=== PATIENT | female | born 1950 | race Two or more races ===

== ENCOUNTER 2018-03-08 11:18 | Inpatient (IN) | payer MEDICARE, OTHER, MEDICAID ==
[~2018-03-08] VITALS: Ht 167.6 cm; Wt 86.6 kg
[2018-03-08] MEDS ORDERED: LORAZEPAM INJ 2 MG/ML VIAL IVP ONE (11:30)
[2018-03-08] MEDS ORDERED: LORAZEPAM INJ 2 MG/ML VIAL ONE (11:32)
--- NOTE | 2018-03-08 11:32 | NUR ---
Patient transported to CT scan via [facility].
[2018-03-08 11:36] LABS: BASOPHILS % (AUTO) 0.6 % (0.0-2.0); EOSINOPHILS % (AUTO) 2.9 % (0.0-6.0); HEMATOCRIT 38 % (33-45); HEMOGLOBIN 12.5 g/dL (11.5-14.8); LYMPHOCYTES % (AUTO) 35.8 % (20.0-44.0); MEAN CORPUSCULAR HGB CONC 33 g/dl (31.0-36.0); MEAN CORPUSCULAR VOLUME 82 fL (82-100); MONOCYTES # (AUTO) 0.4 /CMM (0.1-1.30); MONOCYTES % (AUTO) 7.8 % (2.0-12.0); NEUTROPHILS # (AUTO) 2.9 /CMM (1.8-8.9); NEUTROPHILS % (AUTO) 52.9 % (43.0-81.0); PLATELET COUNT (AUTO) 243 /CMM (150-450); RDW COEFFICIENT OF VARIATION 14.9 (11.5-15.0); RED BLOOD CELL COUNT(AUTO) 4.63 MIL/uL (4.0-5.2); WHITE BLOOD COUNT (AUTO) 5.5 K/uL (4.3-11.0)
[2018-03-08 11:43] LABS: CALCIUM, SERUM 8.7 mg/dL (8.5-10.1); CARBON DIOXIDE 28 mmol/L (21-32); CHLORIDE 107 mmol/L (98-107); CREATININE 0.8 mg/dL (0.6-1.3); GLUCOSE 110 mg/dL (74-106); POTASSIUM 3.9 mmol/L (3.5-5.1); SODIUM SERUM 142 mmol/L (136-145); UREA NITROGEN, BLOOD 16 mg/dL (7-18)
--- NOTE | 2018-03-08 11:43 | NUR ---
Patient came back from CT
[2018-03-08 11:47] LABS: INR 0.92 (0.85-1.15)
[2018-03-08 11:49] LABS: ALANINE AMINOTRANSFERASE 32 U/L (12-78); ALBUMIN 3.5 g/dL (3.4-5.0); ALKALINE PHOSPHATASE 93 U/L (46-116); ASPARTATE AMINOTRANSFERASE 21 U/L (15-37); BILIRUBIN,DIRECT 0.1 mg/dL (0.0-0.2); BILIRUBIN,TOTAL 0.5 mg/dL (0.2-1.0); TOTAL PROTEIN, SERUM 7.3 g/dL (6.4-8.2)
[2018-03-08 11:51] LABS: CHOLESTEROL 163 mg/dL (<200); HDL CHOLESTEROL 78 mg/dL (40-60); LDL 68 mg/dL (0-99); TRIGLYCERIDES 98 mg/dL (30-150); TROPONIN I < 0.017 ng/mL (0.00-0.056)
--- NOTE | 2018-03-08 12:30 | NUR ---
Patient is resting comfortably in bed with eyes closed. Easily aroused. VSS
--- NOTE | 2018-03-08 13:00 | NUR ---
CALLED [facility] TIMMY TONY FOR EVAL ON THIS PT.
--- NOTE | 2018-03-08 14:20 | NUR ---
TIMMY CASTILLO LCSW AT BS FOR PSYCH EVAL.
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
--- NOTE | 2018-03-08 15:26 | NUR ---
REPORT GIVEN TO GAURANG SOTO FOR [facility] GPS 219T
--- NOTE | 2018-03-08 15:27 | NUR ---
IV removed. Catheter intact and site benign. Pressure and 4x4 applied to site. No bleeding noted.
[2018-03-08] MEDS ORDERED: ONDA4TAB5 PO (15:30)
[2018-03-08] MEDS ORDERED: BUSP15TA3 PO (15:30)
[2018-03-08] MEDS ORDERED: ACYC800T PO (15:30)
[2018-03-08] MEDS ORDERED: TEMA15CA PO (15:30)
[2018-03-08] MEDS ORDERED: GABA600T2 PO (15:30)
[2018-03-08] MEDS ORDERED: ASPI-1152 PO (15:30)
[2018-03-08] MEDS ORDERED: TOPI100T38 PO (15:30)
[2018-03-08] MEDS ORDERED: TIZA4TAB4 PO (15:30)
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
[2018-03-08] MEDS ORDERED: MAG HYDROX/AL HYDROX/SIMETH 30 ML UDC PO PRN (16:30)
[2018-03-08] MEDS ORDERED: MAGNESIUM HYDROXIDE 30 ML UDC PO PRN (16:30)
[2018-03-08] MEDS ORDERED: LORAZEPAM 0.5 MG TABLET PO PRN (16:30)
[2018-03-08] MEDS ORDERED: ACETAMINOPHEN 325 MG TABLET PO PRN (16:30)
[2018-03-08] MEDS: busPIRone 5 MG TABLET PO SCH (17:32)
[2018-03-08] MEDS ORDERED: ONDANSETRON 4 MG TAB.RAPDIS PO PRN (19:30)
--- NOTE | 2018-03-08 19:35 | NUR ---
GPSRN ASLEEP, EASILY AWAKEND WHEN CALLED. NO NEEDS FOR NOW, COOPERATIVE, CALM OF THIS TIME
[2018-03-08 20:01] VITALS: BP 118/79
[2018-03-08] MEDS: GABAPENTIN 300 MG CAPSULE PO SCH (20:23)
--- NOTE | 2018-03-08 21:40 | NUR ---
GPSRN DUE MEDS ADMINISTERED . ALL NEEDS ATTENDED. REMAINS COOPERATIVE, BEHAVIOR ACCEPTABLE
--- NOTE | 2018-03-09 03:06 | NUR ---
GPSRN SLEEPING APPEARS COMFORTABLE
--- NOTE | 2018-03-09 06:35 | NUR ---
GPSRN BLOOD DRAWN, NO COMPLAINTS MADE.
[2018-03-09 07:16] LABS: ALBUMIN 3.2 g/dL (3.4-5.0); BILIRUBIN,TOTAL 0.5 mg/dL (0.2-1.0); CALCIUM, SERUM 8.6 mg/dL (8.5-10.1); CREATININE 0.8 mg/dL (0.6-1.3); POTASSIUM 4.2 mmol/L (3.5-5.1); TOTAL PROTEIN, SERUM 6.8 g/dL (6.4-8.2)
[2018-03-09 07:30] LABS: THYROID STIMULATING HORMONE 0.263 uIU/mL (0.358-3.74)
[2018-03-09] MEDS: GABAPENTIN 300 MG CAPSULE PO SCH ×3 (08:14→17:00)
[2018-03-09] MEDS: ASPIRIN EC 81 MG TABLET.DR PO SCH (08:14)
[2018-03-09] MEDS: ACYCLOVIR 800 MG TABLET PO SCH ×3 (08:14→16:35)
[2018-03-09] MEDS: busPIRone 5 MG TABLET PO SCH ×2 (08:15→16:35)
[2018-03-09 08:52] VITALS: BP 110/66
[2018-03-09 16:00] VITALS: BP 124/83
[2018-03-09 20:23] VITALS: BP 106/67
[2018-03-09] MEDS: HALOPERIDOL 5 MG TABLET PO SCH (21:13)
[2018-03-09] MEDS: ATORVASTATIN 40 MG TABLET PO SCH (22:27)
[2018-03-10 08:00] VITALS: BP 134/82
[2018-03-10] MEDS: busPIRone 5 MG TABLET PO SCH ×2 (09:07→16:58)
[2018-03-10] MEDS: GABAPENTIN 300 MG CAPSULE PO SCH ×3 (09:07→16:57)
[2018-03-10] MEDS: ASPIRIN EC 81 MG TABLET.DR PO SCH (09:07)
[2018-03-10] MEDS: ACYCLOVIR 800 MG TABLET PO SCH ×3 (09:07→16:58)
[2018-03-10] MEDS: HALOPERIDOL 5 MG TABLET PO SCH ×2 (09:07→21:11)
[2018-03-10 16:00] VITALS: BP 103/58
[2018-03-10 20:24] VITALS: BP 112/63
[2018-03-10] MEDS: ATORVASTATIN 40 MG TABLET PO SCH (21:11)
[2018-03-11 08:00] VITALS: BP 114/71
[2018-03-11] MEDS: ASPIRIN EC 81 MG TABLET.DR PO SCH (08:25)
[2018-03-11] MEDS: GABAPENTIN 300 MG CAPSULE PO SCH ×3 (08:25→16:16)
[2018-03-11] MEDS: HALOPERIDOL 5 MG TABLET PO SCH ×2 (08:25→22:00)
[2018-03-11] MEDS: ACYCLOVIR 800 MG TABLET PO SCH ×3 (08:26→16:16)
[2018-03-11] MEDS: busPIRone 5 MG TABLET PO SCH ×2 (08:26→16:16)
--- NOTE | 2018-03-11 15:36 | NUR ---
Initial Discharge Plan: Pt resides at [id number] [place] [address] [address] [facility] [id number]; . Upon discharge pt would like to discharge home. Pt denies having any support system however reported living with her boyfriend Oscar Bragg. Pt was unable to provide a telephone # and stated boyfriend working in [place] the majority of the time. SW will follow up to ensure pt is safely and adequately discharged.
[2018-03-11 16:00] VITALS: BP 105/75
[2018-03-11 20:00] VITALS: BP 116/59
[2018-03-11] MEDS: ATORVASTATIN 40 MG TABLET PO SCH (22:00)
[2018-03-11] MEDS: TEMAZEPAM 7.5 MG CAPSULE PO PRN (22:00)
[2018-03-12 07:52] VITALS: BP_SYST 119; BP_SYST 160; BP_DIAS 73; BP_DIAS 79
[2018-03-12] MEDS: busPIRone 5 MG TABLET PO SCH ×2 (08:19→17:13)
[2018-03-12] MEDS: ASPIRIN EC 81 MG TABLET.DR PO SCH (08:19)
[2018-03-12] MEDS: ACYCLOVIR 800 MG TABLET PO SCH ×3 (08:19→17:13)
[2018-03-12] MEDS: GABAPENTIN 300 MG CAPSULE PO SCH ×3 (08:19→17:14)
[2018-03-12] MEDS: HALOPERIDOL 5 MG TABLET PO SCH ×2 (08:19→21:51)
[2018-03-12 16:07] VITALS: BP 110/69
[2018-03-12 20:00] VITALS: BP 117/66
[2018-03-12] MEDS: ATORVASTATIN 40 MG TABLET PO SCH (21:51)
[2018-03-12] MEDS: TEMAZEPAM 7.5 MG CAPSULE PO PRN (21:51)
[2018-03-13 08:00] VITALS: BP 107/58
[2018-03-13] MEDS: busPIRone 5 MG TABLET PO SCH ×2 (08:14→17:05)
[2018-03-13] MEDS: GABAPENTIN 300 MG CAPSULE PO SCH ×3 (08:14→17:05)
[2018-03-13] MEDS: ASPIRIN EC 81 MG TABLET.DR PO SCH (08:14)
[2018-03-13] MEDS: HALOPERIDOL 5 MG TABLET PO SCH ×2 (08:15→21:08)
[2018-03-13 16:17] VITALS: BP 100/53
[2018-03-13 20:00] VITALS: BP 103/63
[2018-03-13] MEDS: TEMAZEPAM 7.5 MG CAPSULE PO PRN (22:16)
[2018-03-13] MEDS: ATORVASTATIN 40 MG TABLET PO SCH (22:16)
[2018-03-14 08:00] VITALS: BP 108/69
[2018-03-14] MEDS: HALOPERIDOL 5 MG TABLET PO SCH ×2 (08:27→21:29)
[2018-03-14] MEDS: busPIRone 5 MG TABLET PO SCH ×2 (08:27→16:09)
[2018-03-14] MEDS: GABAPENTIN 300 MG CAPSULE PO SCH ×3 (08:27→16:09)
[2018-03-14] MEDS: ASPIRIN EC 81 MG TABLET.DR PO SCH (08:27)
[2018-03-14 16:27] VITALS: BP 127/75
--- NOTE | 2018-03-14 19:30 | NUR ---
RECEIVED PATIENT LYING IN BED AWAKE. AO X 2, ABLE TO MAKE NEEDS KNOWN. NO ACUTE DISTRESS NOTED. DENIES ANY PAIN AT THIS TIME. CALM AND COOPERATIVE. NO SI/HI. SAFETY REMINDERS GIVEN. ON LOW BED WITH BILATERAL UPPER SIDE RAILS UP. CALL ARANDA WITHIN EASY REACH. WILL CONTINUE TO MONITOR.
[2018-03-14 20:08] VITALS: BP 127/78
[2018-03-14] MEDS: ATORVASTATIN 40 MG TABLET PO SCH (21:29)
[2018-03-15 03:35] VITALS: BP 127/78
--- NOTE | 2018-03-15 06:14 | NUR ---
PATIENT ASLEEP, EASILY AROUSABLE. RESPIRATIONS EVEN. NO SIGNS OF PAIN NOTED. DUE MED GIVEN WITH NO ASE NOTED. NEEDS ATTENDED. SAFETY PRECAUTIONS AND COMFORT MEASURES IN PLACE. WILL GIVE REPORT TO DAY SHIFT FOR CONTINUITY OF CARE.
[2018-03-15 08:00] VITALS: BP 119/65
[2018-03-15] MEDS: busPIRone 5 MG TABLET PO SCH ×2 (08:34→16:39)
[2018-03-15] MEDS: GABAPENTIN 300 MG CAPSULE PO SCH ×3 (08:34→16:39)
[2018-03-15] MEDS: HALOPERIDOL 5 MG TABLET PO SCH ×2 (08:34→21:34)
[2018-03-15] MEDS: ASPIRIN EC 81 MG TABLET.DR PO SCH (08:35)
[2018-03-15 16:00] VITALS: BP 129/55
[2018-03-15 19:40] VITALS: BP 90/61
[2018-03-15 20:00] VITALS: BP 90/61
[2018-03-15] MEDS: ATORVASTATIN 40 MG TABLET PO SCH (21:34)
--- NOTE | 2018-03-16 06:43 | NUR ---
RN GPS CLOSING NOTES PATIENT IN BED , RESPIRATIONS EVEN AND UNLABORED, DENIES ANY PAIN OR DISCOMFORT AT THIS TIME, PATIENT SLEPT WELL THROUGH SHIFT, ALL NEEDS ATTENDED, PATIENT REMAINS COMFORTABLE AT THIS TIME, WILL CONTINUE TO MONITOR AND ENDORSE TO NEXT SHIFT.
[2018-03-16 08:00] VITALS: BP 115/78
[2018-03-16] MEDS: HALOPERIDOL 5 MG TABLET PO SCH (09:23)
[2018-03-16] MEDS: busPIRone 5 MG TABLET PO SCH (09:23)
[2018-03-16] MEDS: GABAPENTIN 300 MG CAPSULE PO SCH ×2 (09:23→12:36)
[2018-03-16] MEDS: ASPIRIN EC 81 MG TABLET.DR PO SCH (09:25)
--- NOTE | 2018-03-16 15:30 | NUR ---
RADIOLOGIST DIAGNOSTIC NOTE:PATIENT ALERT ,ORIENTED X3,AMBULATORY AND INDEPENDENT ,DENIES SI/HI/AVH .VS STABLE , NOS/S OF DISTRESS NOTED ,MED COMPLIANT ALL BELONGINGS RETURNED TO PATIENT ,ALL PRESCRIPTION GIVEN AND EXPLAINED TO PATIENT AND FRIEND ,SEEN BY AND .PATIENT DISCHARGE WITH FRIEND .
== END 2018-03-16 15:30 | disposition home or self-care (01) | DRG 885 ==
LOC: ER 11:20 → GPS 15:15
PROVIDERS: ADMIT Internal Medicine; ATTEND Psychiatry & Neurology Psychiatry
DX: F20.0 Paranoid schizophrenia (principal); G62.9 Polyneuropathy, unspecified; F29 Unspecified psychosis not due to a substance or known physiological condition; E78.5 Hyperlipidemia, unspecified; I10 Essential (primary) hypertension; K21.9 Gastro-esophageal reflux disease without esophagitis; F32.9 Major depressive disorder, single episode, unspecified; Z86.73 Personal history of transient ischemic attack (TIA), and cerebral infarction without residual deficits; Z73.6 Limitation of activities due to disability
CPT/HCPCS: 36415; 70450-TC; 71045-TC; 80048-TC; 80053-TC; 80061-TC; 80076-TC; 82746; 82962-TC; 83540-TC; 84443-TC; 84484-TC; 85025-TC; 85730-TC; 87081-TC; A4606; J2060; Q0162; Z7610

== ENCOUNTER 2018-11-30 05:45 | Inpatient (IN) | payer MEDICARE, OTHER ==
[~2018-11-30] VITALS: Ht 165.1 cm; Wt 97.2 kg
[~2018-11-30 05:45] MED LIST: ACYC800T PO; ASPI-1152 PO; BUSP15TA3 PO; GABA600T12 PO; ONDA4TAB5 PO; TEMA15CA PO; TIZA4TAB4 PO; TOPI100T38 PO
--- NOTE | 2018-11-30 05:55 | NUR ---
Pt BIBself complaining of dizziness that started last night at 2100, Pt states she fell asleep and woke up at 0330 and was unable to lift tongue. Pt able to lift tongue at the moment, but states that she is having difficulty speaking. Pt AAXO4. Pt primarily welsh speaker. Respirations even and unlabored. Pt put on the monitor and pending eval from ER .
--- NOTE | 2018-11-30 05:56 | NUR ---
ER MD Dr. Hinojosa AT BEDSIDE for EVAL.
--- NOTE | 2018-11-30 05:58 | NUR ---
Pt taken to CT.
--- NOTE | 2018-11-30 06:05 | NUR ---
[facility]
[2018-11-30 06:06] LABS: BASOPHILS % (AUTO) 0.9 % (0.0-2.0); EOSINOPHILS % (AUTO) 3.9 % (0.0-6.0); HEMATOCRIT 40 % (33-45); HEMOGLOBIN 12.8 g/dL (11.5-14.8); LYMPHOCYTES # (AUTO) 2.3 /CMM (0.8-4.8); MEAN CORPUSCULAR HGB CONC 32 g/dl (31.0-36.0); MEAN CORPUSCULAR VOLUME 85 fL (82-100); MONOCYTES # (AUTO) 0.5 /CMM (0.1-1.30); MONOCYTES % (AUTO) 9.8 % (2.0-12.0); NEUTROPHILS # (AUTO) 2.2 /CMM (1.8-8.9); NEUTROPHILS % (AUTO) 41.4 % (43.0-81.0); PLATELET COUNT (AUTO) 223 /CMM (150-450); RED BLOOD CELL COUNT(AUTO) 4.66 MIL/uL (4.0-5.2); WHITE BLOOD COUNT (AUTO) 5.3 K/uL (4.3-11.0)
[2018-11-30] MEDS ORDERED: IOHEXOL-350 100 ML VIAL IV ONE (06:07)
[2018-11-30] MEDS ORDERED: CT SWABBABLE VALVE TRANS SET 1 EA INFUS.SET MC ONE (06:07)
[2018-11-30] MEDS ORDERED: IV NS 0.9% 250 ML IV ONE (06:07)
--- NOTE | 2018-11-30 06:14 | NUR ---
Pt returned from CT.
--- NOTE | 2018-11-30 06:15 | NUR ---
ER MD DR. SOLIS AT Bedside for EVAL.
[2018-11-30 06:16] LABS: CALCIUM, SERUM 8.5 mg/dL (8.5-10.1); CARBON DIOXIDE 28 mmol/L (21-32); CHLORIDE 107 mmol/L (98-107); CREATININE 0.8 mg/dL (0.6-1.3); GLUCOSE 110 mg/dL (74-106); POTASSIUM 3.6 mmol/L (3.5-5.1); SODIUM SERUM 141 mmol/L (136-145); UREA NITROGEN, BLOOD 17 mg/dL (7-18)
[2018-11-30 06:19] LABS: CHOLESTEROL 161 mg/dL (<200); HDL CHOLESTEROL 72 mg/dL (40-60); LDL 84 mg/dL (0-99); TRIGLYCERIDES 91 mg/dL (30-150)
[2018-11-30 06:21] LABS: ALANINE AMINOTRANSFERASE 31 U/L (12-78); ALBUMIN 3.8 g/dL (3.4-5.0); ALKALINE PHOSPHATASE 103 U/L (46-116); ASPARTATE AMINOTRANSFERASE 17 U/L (15-37); BILIRUBIN,DIRECT 0.1 mg/dL (0.0-0.2); BILIRUBIN,TOTAL 0.5 mg/dL (0.2-1.0); TOTAL PROTEIN, SERUM 7.3 g/dL (6.4-8.2)
[2018-11-30] MEDS ORDERED: ASPIRIN 325 MG TABLET ONE (06:52)
[2018-11-30] MEDS ORDERED: ASPIRIN 325 MG TABLET PO ONE (07:00)
--- NOTE | 2018-11-30 07:00 | NUR ---
Pt sitting in bed comfortably. NAD NOTED. Pt on the compliance monitor and pulse ox.
--- NOTE | 2018-11-30 07:27 | NUR ---
REPORT GIVEN TO FARRAH MERLOS FOR [facility].
--- NOTE | 2018-11-30 07:29 | NUR ---
RECEIVED REPORT FROM GAURANG MIGUEL FOR [facility]. PT IS AWAKE AND ALERT, NOT IN RESPIRATORY DISTRESS, V/S STABLE, KEPT RESTED AND COMFORTABLE. WILL CONTINUE TO MONITOR.
--- NOTE | 2018-11-30 09:13 | NUR ---
rec'd verbal auth from [place] to admit to dr terry. dr terry at bedside.
--- NOTE | 2018-11-30 09:20 | NUR ---
called nursing on car supervisor juan for tele bed
[2018-11-30] MEDS ORDERED: CELE200C PO (09:26)
[2018-11-30] MEDS ORDERED: GABA800T11 PO (09:26)
--- NOTE | 2018-11-30 09:58 | NUR ---
called nursing supervisor floor assembly for second time for tele bed; states he will call right back
[2018-11-30] MEDS ORDERED: TEMAZEPAM 15 MG CAPSULE PO PRN (10:00)
--- NOTE | 2018-11-30 10:06 | NUR ---
called report to Adriana MERLOS for admission
--- NOTE | 2018-11-30 10:10 | NUR ---
TECH AT BEDSIDE FOR ECHOCARDIOGRAM.
[2018-11-30 10:30] VITALS: BP 125/72
--- NOTE | 2018-11-30 10:30 | NUR ---
PORT PATROL OFFICER AM NOTES ADMITTED PT FROM ER WITH DX OF CVA.PT VERBALIZED THAT THIS IS THE 5TH TIME SHE HAD THIS EPISODE.ALERT AND ORIENTED X3.VERBALLY RESPONSIVE.AMBULATES AD JAMMIE WITH STEADY GAIT.PT EVAL DONE-PT AMBULATED ALONG THE HALLWAY WITH STEADY GAIT.NIHSS ASSESSMENT DONE AND STROKE TEACHING DONE.SKIN INTACT.DENIES ANY PAIN OR DISTRESS.CALL LIGHT PLACED WITHIN REACH.
--- NOTE | 2018-11-30 11:00 | NUR ---
ON TELE SR HR 86.DENYING ANY PAIN OR DISTRESS.
[2018-11-30] MEDS ORDERED: ONDANSETRON 4 MG TAB.RAPDIS PO PRN (11:30)
[2018-11-30] MEDS ORDERED: ACYCLOVIR 800 MG TABLET PO SCH (13:00)
[2018-11-30] MEDS ORDERED: POTASSIUM CHLORIDE 20 MEQ TAB.PRT.SR PO SCH (13:00)
[2018-11-30] MEDS ORDERED: POTASSIUM CHLORIDE 20 MEQ POWDER PACKET PO SCH (13:00)
[2018-11-30] MEDS: GABAPENTIN 400 MG CAPSULE PO SCH ×2 (13:42→21:57)
--- NOTE | 2018-11-30 14:20 | NUR ---
Pt seen and evaluated by PT and pt ambulated along the hallway with stand by assist with slow,steady gait.Pt tolerated well.
[2018-11-30 16:00] VITALS: BP 128/74
[2018-11-30] MEDS: busPIRone 5 MG TABLET PO SCH (16:44)
--- NOTE | 2018-11-30 19:30 | NUR ---
SUPERVISOR CARTOGRAPHY INITIAL NOTES Patient is awake, A/O x3. Stable oxygen saturation on RA. Sinus fadumo on the tele monitor HR 58, denies pain. Instructed to use call light if she needs assistance, verbalized understanding. Maintained safety, will cont to monitor.
[2018-11-30 20:00] VITALS: BP 140/82
[2018-11-30] MEDS ORDERED: ATORVASTATIN 10 MG TABLET PO SCH (22:00)
[2018-11-30] MEDS ORDERED: TOPIRAMATE 100 MG TABLET PO SCH (22:00)
[2018-12-01] VITALS: BP 105/65
[2018-12-01 04:00] VITALS: BP 116/69
[2018-12-01 04:15] VITALS: BP 116/69
[2018-12-01] MEDS: GABAPENTIN 400 MG CAPSULE PO SCH ×2 (06:15→12:31)
--- NOTE | 2018-12-01 06:29 | NUR ---
SENIOR IOS DEVELOPER CLOSING NOTES Patient in bed, Sinus fadumo on the tele monitor HR lows on 42 to 58, denies dizziness, no c/o discomfort. NIHSS stroke scale performed, total 0. Reports weakness on the Right side but no drift. Slept well more than 6 hours, no acute events over night. Maintained safety, will endorse to oncoming RN.
[2018-12-01 07:23] LABS: CALCIUM, SERUM 8.8 mg/dL (8.5-10.1); CREATININE 0.8 mg/dL (0.6-1.3); POTASSIUM 5.1 mmol/L (3.5-5.1)
[2018-12-01 07:24] LABS: BASOPHILS % (AUTO) 0.9 % (0.0-2.0); EOSINOPHILS % (AUTO) 4.2 % (0.0-6.0); HEMATOCRIT 42 % (33-45); HEMOGLOBIN 13.5 g/dL (11.5-14.8); LYMPHOCYTES # (AUTO) 1.2 /CMM (0.8-4.8); MEAN CORPUSCULAR HGB CONC 32 g/dl (31.0-36.0); MEAN CORPUSCULAR VOLUME 85 fL (82-100); MONOCYTES # (AUTO) 0.4 /CMM (0.1-1.30); MONOCYTES % (AUTO) 8.5 % (2.0-12.0); NEUTROPHILS # (AUTO) 2.3 /CMM (1.8-8.9); NEUTROPHILS % (AUTO) 56.4 % (43.0-81.0); PLATELET COUNT (AUTO) 223 /CMM (150-450); RED BLOOD CELL COUNT(AUTO) 4.95 MIL/uL (4.0-5.2); WHITE BLOOD COUNT (AUTO) 4.2 K/uL (4.3-11.0)
[2018-12-01 07:29] LABS: ALBUMIN 3.5 g/dL (3.4-5.0); BILIRUBIN,TOTAL 0.8 mg/dL (0.2-1.0); TOTAL PROTEIN, SERUM 7.2 g/dL (6.4-8.2)
[2018-12-01 07:36] LABS: THYROID STIMULATING HORMONE 0.518 uIU/mL (0.358-3.74)
--- NOTE | 2018-12-01 07:45 | NUR ---
AGRICULTURAL EQUIPMENT OPERATOR OPENING NOTES PATIENT IS STABLE CONDITION, IN NO APPARENT DISTRESS. BED RAILS UPX2, LOCKED AND AT LOWEST POSITION. IV LINE IS INTACT AND PATENT. CALL LIGHT IS WITHIN REACH. WILL CONTINUE TO MONITOR.
[2018-12-01 08:00] VITALS: BP 129/92
[2018-12-01] MEDS: busPIRone 5 MG TABLET PO SCH (08:06)
[2018-12-01] MEDS ORDERED: ATOR10TA PO (08:25)
[2018-12-01] MEDS ORDERED: ASPIRIN EC 325 MG TABLET.DR PO SCH (09:00)
[2018-12-01] MEDS ORDERED: TIZANIDINE HCL 4 MG TABLET PO SCH (09:00)
--- NOTE | 2018-12-01 14:59 | NUR ---
MS FIRST COAT OPERATOR NOTES PATIENT IN STABLE CONDITION. IN NO APPARENT DISTRESS. STROKE EDUCATION PAMPHLETS PROVIDED. EXIT CARE SIGNED AND PROVIDED. TAXI VOUCHER PROVIDED TO PATIENT. PATIENT ESCORTED OUT OF FACILITY BY LUCIANA ASCENCIO. BELONGINGS CHECKED AND GIVEN TO PATIENT. IV LINE REMOVED. ID BAND REMOVED. PRESCRIPTIONS GIVEN TO PATIENT.
== END 2018-12-01 15:53 | disposition home or self-care (01) | DRG 69 ==
LOC: ER 05:47 → TELE 10:21 → MED 12-01 11:30
PROVIDERS: ADMIT Internal Medicine; ATTEND Internal Medicine
DX: G45.9 Transient cerebral ischemic attack, unspecified (principal); F29 Unspecified psychosis not due to a substance or known physiological condition; G62.9 Polyneuropathy, unspecified; Z86.73 Personal history of transient ischemic attack (TIA), and cerebral infarction without residual deficits; F41.9 Anxiety disorder, unspecified; E78.5 Hyperlipidemia, unspecified; K21.9 Gastro-esophageal reflux disease without esophagitis; Z79.82 Long term (current) use of aspirin; R47.81 Slurred speech; R53.1 Weakness
CPT/HCPCS: 36415; 70450-TC; 70496-TC; 70498-TC; 71045-TC; 80048-TC; 80053-TC; 80061-TC; 80076-TC; 82962-TC; 84443-TC; 84484-TC; 85025-TC; 85730-TC; 87081-TC; 92521; 93307-TC; G0378; J7050; Q9967

== ENCOUNTER 2019-04-02 16:31 | Emergency (ER) | payer MEDICARE, OTHER ==
[~2019-04-02] VITALS: Ht 170.2 cm; Wt 86.2 kg
[~2019-04-02 16:31] MED LIST changes: +ATOR10TA PO; +CELE200C PO; -GABA600T12 PO; +GABA800T11 PO
--- NOTE | 2019-04-02 16:55 | NUR ---
PT BIBFAMILY FOR H/A, COUGH, NASAL CONGESTION X LAST NIGHT, PT AAOX4, PT TO BED 4, NAD NOTED, VSS, PENDING MD LEES
[2019-04-02 17:51] LABS: BASOPHILS # (AUTO) 0.3 /CMM (0.0-0.2); BASOPHILS % (AUTO) 4.5 % (0.0-2.0); EOSINOPHILS % (AUTO) 1.3 % (0.0-6.0); HEMATOCRIT 41 % (33-45); LYMPHOCYTES # (AUTO) 1.3 /CMM (0.8-4.8); LYMPHOCYTES % (AUTO) 20.5 % (20.0-44.0); MEAN CORPUSCULAR HGB CONC 32 g/dl (31.0-36.0); MEAN CORPUSCULAR VOLUME 85 fL (82-100); MONOCYTES # (AUTO) 0.4 /CMM (0.1-1.30); MONOCYTES % (AUTO) 6.8 % (2.0-12.0); NEUTROPHILS # (AUTO) 4.3 /CMM (1.8-8.9); NEUTROPHILS % (AUTO) 66.9 % (43.0-81.0); PLATELET COUNT (AUTO) 234 /CMM (150-450); RED BLOOD CELL COUNT(AUTO) 4.83 MIL/uL (4.0-5.2); WHITE BLOOD COUNT (AUTO) 6.5 K/uL (4.3-11.0)
[2019-04-02 17:57] LABS: CALCIUM, SERUM 8.9 mg/dL (8.5-10.1); CARBON DIOXIDE 23 mmol/L (21-32); CHLORIDE 107 mmol/L (98-107); CREATININE 0.7 mg/dL (0.6-1.3); GLUCOSE 98 mg/dL (74-106); POTASSIUM 3.6 mmol/L (3.5-5.1); SODIUM SERUM 142 mmol/L (136-145); UREA NITROGEN, BLOOD 16 mg/dL (7-18)
[2019-04-02] MEDS ORDERED: IV NS 0.9% 500 ML BAG IV ONE (18:00)
[2019-04-02 18:03] LABS: ALANINE AMINOTRANSFERASE 44 U/L (12-78); ALBUMIN 3.9 g/dL (3.4-5.0); ALKALINE PHOSPHATASE 105 U/L (46-116); ASPARTATE AMINOTRANSFERASE 26 U/L (15-37); BILIRUBIN,DIRECT 0.1 mg/dL (0.0-0.2); BILIRUBIN,TOTAL 0.4 mg/dL (0.2-1.0); LIPASE 205 U/L (73-393); TOTAL PROTEIN, SERUM 7.7 g/dL (6.4-8.2)
[2019-04-02] MEDS ORDERED: ONDANSETRON HCL/PF 4 MG/2 ML VIAL ONE (18:17)
[2019-04-02] MEDS ORDERED: ONDANSETRON HCL/PF - ER 4 MG/2 ML VIAL IV ONE (18:30)
[2019-04-02 18:32] LABS: APPEARANCE,URINE Clear (CLEAR); BILIRUBIN,URINE Negative (NEGATIVE); BLOOD, URINE Negative Ery/uL (NEGATIVE); COLOR,URINE Light yellow (YELLOW); KETONES,URINE Negative (NEGATIVE); LEUKOCYTE ESTERASE ,URINE Negative (NEGATIVE); NITRITE, URINE Negative (NEGATIVE); PROTEIN,URINE Negative (NEGATIVE); UGLUCOSE Negative (NEGATIVE); UROBILINOGEN,URINE 0.2 EU/dL (0.2)
--- NOTE | 2019-04-02 19:52 | NUR ---
CALLED ESAU INFORMED HER PATIENT IS DISCHARGED AND READY TO BE PICKED UP ETA 20 MINS
--- NOTE | 2019-04-02 19:55 | NUR ---
Patient discharged to home in stable condition. Written and verbal after care instructions given. Patient verbalizes understanding of instruction. IV removed. Catheter intact and site benign. Pressure and 4x4 applied to site. No bleeding noted.
[2019-04-02 20:06] VITALS: BP 145/98
== END 2019-04-02 20:06 | disposition home or self-care (01) ==
LOC: ER 16:31
DX: B34.9 Viral infection, unspecified (principal); R59.9 Enlarged lymph nodes, unspecified; Z86.73 Personal history of transient ischemic attack (TIA), and cerebral infarction without residual deficits; Z60.2 Problems related to living alone; Z79.82 Long term (current) use of aspirin
CPT/HCPCS: 36415; 71045; 76700; 80048; 80076; 81001; 83690; 84484; 85025; 93005; 96374; 99284; J2405 ×2; 81000-TC

== ENCOUNTER → 2020-06-04 | Emergency (ER) | payer BC, OTHER ==
[~2020-06-04] VITALS: Ht 165.1 cm; Wt 70.3 kg
[~2020-06-04] MED LIST changes: -ASPI-1152 PO; +ASPI-1420 PO; +ATOR80TA PO; +CT SWABBABLE VALVE TRANS SET 1 EA INFUS.SET MC ONE; +DONE10TA44 PO; +IOHEXOL-350 100 ML VIAL IV ONE; +IV NS 0.9% 250 ML IV ONE; +MORPHINE SULFATE INJ 2 MG/ML DISP.SYRIN IV ONE; +MORPHINE SULFATE INJ 4 MG/ML DISP.SYRIN ONE; +OMEP20CA15 PO; -TIZA4TAB4 PO; +TIZA4TAB5 PO; +TOPI50TA24 PO
--- NOTE | 2020-06-04 16:00 | NUR ---
PT BIBRA C/O PAIN IN RIGHT SIDE OF ABDOMEN/FLANK AND LEG X 3 DAYS. PT IS AAOX3, NOT IN RESPIRATORY DISTRESS, HOOKED TO COMPUTERIZED MACHINE FABRIC CUTTER, KEPT RESTED AND COMFORTABLE, WILL CONTINUE TO MONITOR.
--- NOTE | 2020-06-04 17:35 | NUR ---
PT SEEN AND EXAMINED BY MICAELA DURÁN.
[2020-06-04 18:08] LABS: BASOPHILS % (AUTO) 0.7 % (0.0-2.0); EOSINOPHILS % (AUTO) 3.2 % (0.0-6.0); HEMATOCRIT 40 % (33-45); HEMOGLOBIN 12.5 g/dL (11.5-14.8); LYMPHOCYTES # (AUTO) 1.7 /CMM (0.8-4.8); LYMPHOCYTES % (AUTO) 31.2 % (20.0-44.0); MEAN CORPUSCULAR HGB CONC 31 g/dl (31.0-36.0); MEAN CORPUSCULAR VOLUME 87 fL (82-100); MONOCYTES # (AUTO) 0.5 /CMM (0.1-1.30); MONOCYTES % (AUTO) 10.2 % (2.0-12.0); NEUTROPHILS # (AUTO) 2.9 /CMM (1.8-8.9); NEUTROPHILS % (AUTO) 54.7 % (43.0-81.0); PLATELET COUNT (AUTO) 215 /CMM (150-450); RED BLOOD CELL COUNT(AUTO) 4.57 MIL/uL (4.0-5.2); WHITE BLOOD COUNT (AUTO) 5.3 K/uL (4.3-11.0)
[2020-06-04 18:21] LABS: CALCIUM, SERUM 8.5 mg/dL (8.5-10.1); CARBON DIOXIDE 23 mmol/L (21-32); CHLORIDE 110 mmol/L (98-107); CREATININE 0.8 mg/dL (0.6-1.3); GLUCOSE 109 mg/dL (74-106); POTASSIUM 3.8 mmol/L (3.5-5.1); SODIUM SERUM 144 mmol/L (136-145); UREA NITROGEN, BLOOD 21 mg/dL (7-18)
[2020-06-04 18:24] LABS: CHOLESTEROL 158 mg/dL (<200); HDL CHOLESTEROL 60 mg/dL (40-60); LDL 79 mg/dL (0-99); TRIGLYCERIDES 121 mg/dL (30-150)
[2020-06-04 18:26] LABS: ALANINE AMINOTRANSFERASE 23 U/L (12-78); ALBUMIN 3.5 g/dL (3.4-5.0); ALKALINE PHOSPHATASE 89 U/L (46-116); ASPARTATE AMINOTRANSFERASE 18 U/L (15-37); BILIRUBIN,DIRECT 0.1 mg/dL (0.0-0.2); BILIRUBIN,TOTAL 0.3 mg/dL (0.2-1.0)
--- NOTE | 2020-06-04 18:30 | NUR ---
PT IS WHEELED TO CT SCAN VIA [facility].
--- NOTE | 2020-06-04 19:10 | NUR ---
ASSUMED CARE FOR THIS PT.
--- NOTE | 2020-06-04 22:07 | NUR ---
LEEANNA PACE SPEAKING WITH SNEHAL SANTOS
--- NOTE | 2020-06-04 22:20 | NUR ---
MALIKA RSLT SENT TO [facility] FAXED TO [phone]
--- NOTE | 2020-06-04 23:18 | NUR ---
[facility] [id number] [facility] 45mins
--- NOTE | 2020-06-05 00:17 | NUR ---
REPORT GIVEN TO EMS. PT STABLE FOR TRANSFER
--- NOTE | 2020-06-05 00:20 | NUR ---
Report given to Carolyn MERLOS at [facility] for continuity of care.
--- NOTE | 2020-06-05 00:38 | NUR ---
Patient left hospital in stable condition with EMS to [facility] on [facility].
[2020-06-05 00:40] VITALS: BP 107/74
== END | disposition short-term general hospital (02) ==
LOC: ER 16:10
DX: R20.0 Anesthesia of skin (principal); Z86.73 Personal history of transient ischemic attack (TIA), and cerebral infarction without residual deficits; Z79.899 Other long term (current) drug therapy; R00.1 Bradycardia, unspecified; E04.2 Nontoxic multinodular goiter; J98.4 Other disorders of lung; R10.9 Unspecified abdominal pain; M79.604 Pain in right leg
CPT/HCPCS: 36415; 70450; 70496; 70498; 71045; 80048; 80061; 80076; 84484; 85025; 85730; 87081; 87426; 93005; 96374; 99285; J2270; J7050; Q9967

== ENCOUNTER 2025-01-01 11:44 | Emergency (ER) | payer OTHER ==
[~2025-01-01] VITALS: Ht 165.1 cm; Wt 89.8 kg
[~2025-01-01 11:44] MED LIST changes: +ACYC-108 PO; -ACYC800T PO; -ATOR10TA PO; -BUSP15TA3 PO; -CELE200C PO; -CT SWABBABLE VALVE TRANS SET 1 EA INFUS.SET MC ONE; -IOHEXOL-350 100 ML VIAL IV ONE; -IV NS 0.9% 250 ML IV ONE; -MORPHINE SULFATE INJ 2 MG/ML DISP.SYRIN IV ONE; -MORPHINE SULFATE INJ 4 MG/ML DISP.SYRIN ONE; -TIZA4TAB5 PO; -TOPI100T38 PO
[2025-01-01 12:37] LABS: BASOPHILS # (AUTO) 0.1 K/uL (0.0-0.2); BASOPHILS % (AUTO) 1.7 % (0.0-2.0); EOSINOPHILS # (AUTO) 0.1 K/uL (0.0-0.7); EOSINOPHILS % (AUTO) 1.4 % (0.0-6.0); HEMATOCRIT 39 % (33-45); HEMOGLOBIN 12.5 g/dL (11.5-14.8); LYMPHOCYTES # (AUTO) 1.1 K/uL (0.8-4.8); LYMPHOCYTES % (AUTO) 23.1 % (20.0-44.0); MEAN CORPUSCULAR HEMOGLOBIN 27 PG (26.0-33.0); MEAN CORPUSCULAR HGB CONC 32 g/dl (31.0-36.0); MEAN CORPUSCULAR VOLUME 84 fL (82-100); MONOCYTES # (AUTO) 0.5 K/uL (0.1-1.30); MONOCYTES % (AUTO) 10.3 % (2.0-12.0); NEUTROPHILS # (AUTO) 3.1 K/uL (1.8-8.9); NEUTROPHILS % (AUTO) 63.5 % (43.0-81.0); PLATELET COUNT (AUTO) 216 K/uL (150-450); RED BLOOD CELL COUNT(AUTO) 4.63 MIL/uL (4.0-5.2); WHITE BLOOD COUNT (AUTO) 4.8 K/uL (4.3-11.0)
[2025-01-01 12:43] LABS: CALCIUM, SERUM 8.9 mg/dL (8.5-10.1); CARBON DIOXIDE 29 mmol/L (21-32); CHLORIDE 108 mmol/L (98-107); CREATININE 0.8 mg/dL (0.6-1.3); GLUCOSE 114 mg/dL (74-106); POTASSIUM 3.6 mmol/L (3.5-5.1); SODIUM SERUM 144 mmol/L (136-145); UREA NITROGEN, BLOOD 14 mg/dL (7-18)
[2025-01-01 12:57] LABS: ALANINE AMINOTRANSFERASE 28 U/L (12-78); ALBUMIN 3.7 g/dL (3.4-5.0); ALKALINE PHOSPHATASE 107 U/L (46-116); ASPARTATE AMINOTRANSFERASE 21 U/L (15-37); BILIRUBIN,DIRECT 0.2 mg/dL (0.0-0.2); BILIRUBIN,TOTAL 0.6 mg/dL (0.2-1.0); NT-PRO BNP 273 pg/mL (0-125); TOTAL PROTEIN, SERUM 7.1 g/dL (6.4-8.2)
[2025-01-01 13:53] VITALS: BP 152/84; TEMP 98.2; O2SAT 100
== END 2025-01-01 13:53 | disposition home or self-care (01) ==
LOC: ER 11:44
DX: R06.02 Shortness of breath (principal); I10 Essential (primary) hypertension; Z79.624 Long term (current) use of inhibitors of nucleotide synthesis; Z79.82 Long term (current) use of aspirin; Z79.899 Other long term (current) drug therapy; Z86.73 Personal history of transient ischemic attack (TIA), and cerebral infarction without residual deficits
CPT/HCPCS: 36415; 71045-TC; 80048-TC; 80076-TC; 83880; 84484-TC; 85025-TC